=== PATIENT | female | born 1945 | race Caucasian/White ===

== ENCOUNTER 2021-12-28 19:33 | Inpatient (IN) | payer OTHER, MEDICAID ==
[~2021-12-28] VITALS: Ht 160 cm; Wt 51.7 kg
[~2021-12-28 19:33] MED LIST: ASPI-1856 PO; ATOR20TA40 PO; LISI5TAB24 PO; METO25TA PO; PANT40EC56 PO
--- NOTE | 2021-12-28 19:38 | NUR ---
PT BIBA ALS ([facility]) ER BED 8
--- NOTE | 2021-12-28 19:40 | NUR ---
Patient resting in bed, A/Ox4, chest rise and fall symmetrical, no c/o pain or s/s of distress.
[2021-12-28 19:50] VITALS: BP 152/74
--- NOTE | 2021-12-28 20:06 | NUR ---
RADIOLOGY AT BEDSIDE
--- NOTE | 2021-12-28 20:07 | NUR ---
TRISTAN REDDY AT BEDSIDE
[2021-12-28 20:44] LABS: BASOPHILS # (AUTO) 0.1 K/uL (0.00-0.22); BASOPHILS % (AUTO) 1.3 % (0.0-2.0); EOSINOPHILS # (AUTO) 0.1 K/uL (0-0.4); EOSINOPHILS % (AUTO) 2.4 % (0.0-4.0); LYMPHOCYTES # (AUTO) 0.8 K/uL (2.5-16.5); LYMPHOCYTES % (AUTO) 15.1 % (20.5-51.1); MEAN CORPUSCULAR HEMOGLOBIN 27 pg (27-31); MEAN CORPUSCULAR HGB CONC 32 g/dL (33-37); MEAN CORPUSCULAR VOLUME 85.6 fL (80-94); MONOCYTES # (AUTO) 0.5 K/uL (0.8-1.0); MONOCYTES % (AUTO) 8.7 % (1.7-9.3); NEUTROPHILS # (AUTO) 3.8 K/uL (1.8-7.7); NEUTROPHILS % (AUTO) 72.5 % (42.2-75.2); PLATELET COUNT (AUTO) 200 K/uL (140-450); RED BLOOD CELL COUNT(AUTO) 2.05 MIL/uL (4.20-5.40); RED CELL DISTRIBUTION WIDTH 17.2 % (11.6-13.7); WHITE BLOOD COUNT (AUTO) 5.2 K/uL (4.8-10.8)
[2021-12-28 20:47] LABS: HEMATOCRIT 17.5 % (36-48); HEMOGLOBIN 5.6 g/dL (12.0-16.0)
[2021-12-28 21:06] LABS: LIPASE 339 U/L (73-393)
[2021-12-28 21:11] LABS: ALBUMIN 3.6 g/dL (3.4-5.0); ANION GAP 14.9 (8-16); ASPARTATE AMINOTRANSFERASE 18 U/L (15-37); CARBON DIOXIDE 22.1 mmol/L (21-32); CHLORIDE 113 mmol/L (98-107); CREATININE 1.8 mg/dL (0.6-1.3); GLUCOSE 113 mg/dL (74-106); SODIUM SERUM 144 mmol/L (136-145); TOTAL BILIRUBIN 0.4 mg/dL (0.0-1.0); UREA NITROGEN, BLOOD 44 mg/dL (7-18)
[2021-12-28] MEDS ORDERED: SODIUM POLYSTYRENE 15 GM/60 ML UDBTL PO ONE (21:20)
[2021-12-28] MEDS ORDERED: INSULIN REGULAR, HUMAN 100 UNIT/ML VIAL SUBQ ONE (21:20)
[2021-12-28] MEDS ORDERED: DEXTROSE 50% 50 ML SYR IVP ONE (21:20)
[2021-12-28 21:37] LABS: APPEARANCE,URINE CLEAR (CLEAR); BILIRUBIN,URINE NEGATIVE (NEGATIVE); BLOOD, URINE NEGATIVE (NEGATIVE); COLOR,URINE YELLOW (YELLOW); LEUKOCYTE ESTERASE ,URINE NEGATIVE (NEGATIVE); NITRITE, URINE NEGATIVE (NEGATIVE); UGLUCOSE NEGATIVE (NEGATIVE)
--- NOTE | 2021-12-28 22:25 | NUR ---
Patient resting in bed, A/Ox4, chest rise and fall symmetrical, no c/o pain or s/s of distress.
[2021-12-28 22:37] LABS: PROTHROMBIN TIME 10.4 secs (10.8-13.4)
[2021-12-28 22:42] LABS: ANION GAP 16.9 (8-16); CARBON DIOXIDE 19.9 mmol/L (21-32); CHLORIDE 113 mmol/L (98-107); CREATININE 1.8 mg/dL (0.6-1.3); GLUCOSE 114 mg/dL (74-106); POTASSIUM 5.8 mmol/L (3.5-5.1); SODIUM SERUM 144 mmol/L (136-145); UREA NITROGEN, BLOOD 45 mg/dL (7-18)
[2021-12-28] MEDS ORDERED: guaiFENesin DM 200/20 MG-10 ML 10 ML UDC PO PRN (23:10)
[2021-12-28] MEDS ORDERED: ZOLPIDEM 5 MG TAB PO PRN (23:10)
[2021-12-28] MEDS ORDERED: POTASSIUM CHLORIDE 10 MEQ TABER PO PRN (23:10)
[2021-12-28] MEDS ORDERED: ACETAMINOPHEN 325 MG TAB PO PRN (23:10)
[2021-12-28] MEDS ORDERED: DOCUSATE SODIUM 100 MG GELCAP PO PRN (23:10)
[2021-12-28] MEDS: NACL 0.9% 1,000 ML IV SCH (23:10)
[2021-12-28] MEDS ORDERED: ONDANSETRON 4 MG/2 ML VIAL IM/IVP PRN (23:10)
[2021-12-28] MEDS ORDERED: CALCIUM GLUCONATE 10% 1,000 MG in NACL 0.9% 50 ML IV SCH (23:15)
--- NOTE | 2021-12-28 23:15 | NUR ---
Blood Transufion started at 80 mL/hr in 20 G RAC. Patient resting in bed, A/Ox4, chest rise and fall symmetrical, no c/o pain or s/s of distress.
--- NOTE | 2021-12-28 23:30 | NUR ---
Patient resting in bed, A/Ox4, chest rise and fall symmetrical, no c/o pain or s/s of distress, no raction to blood transfusion, rate increased to 110 mL/hr, RBC infusing via 20G RAC.
--- NOTE | 2021-12-28 23:50 | NUR ---
Patient will be admitted to care of Chandler RN. Admited to Telemetry. Will go to room 110B. Belongings list completed. Bedside report given to Chandler RN, Chandler RN verbalized understanding of report, No further questions. Patient was safely transferred to bed, RBC infusing at 110mL/hr via 20G RAC IV. Chandler RN stated she "is taking over care and continuing infusion of RBC." Patient resting in bed, A/Ox4, chest rise and fall symmetrical, no c/o pain or s/s of distress.
[2021-12-28 23:55] VITALS: BP 146/77
[2021-12-29 00:03] LABS: CHOL/HDL RATIO 2.3 (1-4.5); FREE T4 (FREE THYROXINE) 0.77 ng/dL (0.76-1.46); MAGNESIUM 2.4 mg/dL (1.8-2.4); PHOSPHORUS 4.1 mg/dL (2.5-4.9); THYROID STIMULATING HORMONE 0.94 uIU/mL (0.34-3.74)
--- NOTE | 2021-12-29 00:19 | NUR ---
GET THE REPORT FROM ER NURSE ALDO, PATIENT IS LYING ON BED, PATIENT IS ALERT ORIENTED X4, NO ANY COMPLAIN OF PAIN OR SHORTNESS OF BREATH AT THIS TIME, PATIENT IS RECEIVING OXYGEN 2 LITER VIA NASAL CANNULA,PATIENT IS RECEIVING BLOOD TRANSFUSION , NO ANY REACTION NOTED AT THIS TIME,VITAL SIGN IS WITHIN THE NORMAL RANGE, CALL LIGHT IS WITHIN THE REACH, WILL CONTINUE TO MONITOR PATIENT.
--- NOTE | 2021-12-29 02:56 | NUR ---
PATIENT BLOOD TRANSFUSION FINISHED AT THIS TIME, NO ANY REACTION NOTED AT THIS TIME, VITAL SIGN IS WITHIN THE NORMAL RANGE, WILL CONTINUE TO MONITOR PATIENT.
--- NOTE | 2021-12-29 03:20 | NUR ---
2 UNIT OF PACKED RED BLOOD CELL STARTED,NO ANY REACTION OR PAIN NOTED AT THIS TIME, VITAL SIGN IS WITHIN THE NORMAL RANGE, CALL LIGHT IS WITHIN THE NORMAL RANGE, WILL CONTINUE TO MONITOR PATIENT.
[2021-12-29 04:00] VITALS: BP 155/74
--- NOTE | 2021-12-29 04:15 | NUR ---
PATIENT IS LYING ON BED, VITAL SIGN IS WITHIN THE NORMAL RANGE,NO ANY COMPLAIN OF PAIN OR SHORTNESS OF BREATH AT THIS TIME, BLOOD TRANSFUSION PATIENT TOLERATING WELL, CALL LIGHT IS WITHIN THE REACH, WILL CONTINUE TO MONITOR PATIENT.
--- NOTE | 2021-12-29 05:50 | NUR ---
PATIENT IS NOT COOPERATING,AND SAYING BURKS THAT U GUYS ARE TRYING TO KILL ME NOT DOING ANYTHING, AND STARTING CRYING AND SAY SHE WANTS TO GO HER [place] HOME WITH 2 SON AND 1 DAUGHTER, SHE GETS ANGRY AGAIN AND STARTED TO WALK , PATIENT REFUSED IV FLUID , WILL CONTINUE TO MONITOR PATIENT.
--- NOTE | 2021-12-29 06:15 | NUR ---
PATIENT BLOOD TRANSFUSION IS FINISHED , TOLERATED WELL, NO ANY REACTION NOTED, POST VITAL SIGN IS WITHIN THE NORMAL RANGE, CALL LIGHT IS WITHIN THE REACH, WILL CONTINUE TO MONITOR PATIENT.
--- NOTE | 2021-12-29 07:27 | NUR ---
GAVE THE REPORT TO MORNING NURSE EMILY FOR CONTINUOS OF CARE, PATIENT IS STABLE.
--- NOTE | 2021-12-29 07:30 | NUR ---
RECEIVED REPORT FROM PM NURSE. PATIENT IS RESTING IN BED, AAO x4, RESPIRATIONS EVEN AND UL ON 2LNC. DENIES PAIN/DISCOMFORT. IV SITE TO RAC WNL. PT REFUSING IVF. EXPLAINED TO PATIENT IMPORTANCE OF IVF PER MD ORDER, PT REFUSING AND STATES "I DONT WANT TO HAVE CORDS EVERYWHERE, I DONT WANT IT." SIDE RAILS x2, BED IN LOWEST POSITION, CALL LIGHT IN REACH. WILL CONT TO MONITOR.
[2021-12-29 08:00] VITALS: BP 163/71
[2021-12-29 08:26] LABS: ANION GAP 15.8 (8-16); CHLORIDE 114 mmol/L (98-107); CREATININE 1.5 mg/dL (0.6-1.3); GLUCOSE 80 mg/dL (74-106); POTASSIUM 4.8 mmol/L (3.5-5.1); SODIUM SERUM 145 mmol/L (136-145); UREA NITROGEN, BLOOD 35 mg/dL (7-18)
[2021-12-29 08:46] LABS: BASOPHILS # (AUTO) 0.1 K/uL (0.00-0.22); BASOPHILS % (AUTO) 1.3 % (0.0-2.0); EOSINOPHILS # (AUTO) 0.1 K/uL (0-0.4); EOSINOPHILS % (AUTO) 2.5 % (0.0-4.0); HEMATOCRIT 25.6 % (36-48); HEMOGLOBIN 8.4 g/dL (12.0-16.0); LYMPHOCYTES # (AUTO) 1.1 K/uL (2.5-16.5); LYMPHOCYTES % (AUTO) 18.4 % (20.5-51.1); MEAN CORPUSCULAR HEMOGLOBIN 28 pg (27-31); MEAN CORPUSCULAR HGB CONC 33 g/dL (33-37); MEAN CORPUSCULAR VOLUME 85.6 fL (80-94); MONOCYTES # (AUTO) 0.6 K/uL (0.8-1.0); MONOCYTES % (AUTO) 10.2 % (1.7-9.3); NEUTROPHILS # (AUTO) 3.9 K/uL (1.8-7.7); NEUTROPHILS % (AUTO) 67.6 % (42.2-75.2); PLATELET COUNT (AUTO) 179 K/uL (140-450); RED BLOOD CELL COUNT(AUTO) 2.99 MIL/uL (4.20-5.40); RED CELL DISTRIBUTION WIDTH 15.9 % (11.6-13.7); WHITE BLOOD COUNT (AUTO) 5.8 K/uL (4.8-10.8)
[2021-12-29] MEDS: ECOTRIN 81 MG TABEC PO SCH (09:25)
[2021-12-29] MEDS: PANTOPRAZOLE 40 MG TABEC PO SCH (09:25)
[2021-12-29] MEDS: lisinopriL 5 MG TAB PO SCH (09:26)
[2021-12-29] MEDS: METOPROLOL 25 MG TAB PO SCH ×2 (09:27→20:39)
--- NOTE | 2021-12-29 11:50 | NUR ---
PATIENT HAS BEEN SCREENED AND CATEGORIZED LOW NUTRITION RISK. PATIENT WILL BE SEEN WITHIN 7 DAYS OF ADMISSION. 01/04/[address]
[2021-12-29] MEDS ORDERED: hydrALAZINE 20 MG/ML VIAL IVP PRN (11:55)
[2021-12-29 12:00] VITALS: BP 114/66
--- NOTE | 2021-12-29 12:31 | NUR ---
PATIENT RESTING IN BED, EATING LUNCH. RESPIRATIONS EVEN AND UL ON 2LNC. DENIES PAIN/DISCOMFORT. PT STILL REFUSING IVF. ALL NEEDS MET AT THIS TIME. SAFETY MEASURES IN PLACE.
--- NOTE | 2021-12-29 13:11 | NUR ---
TELE STRIP THIS AM SHOWING SR W/ST DEPRESSION. NOW SHOWING SR W/ST DEPRESSION AND 1 AV, DR PEARL RENEWABLE ENERGY BROKER AWARE. NO NEW ORDERS.
[2021-12-29 16:00] VITALS: BP 155/62
[2021-12-29] MEDS: ATORVASTATIN 20 MG TAB PO SCH (17:00)
[2021-12-29] MEDS: NITROGLYCERIN 0.4 MG TAB SL PRN ×4 (18:48→22:21)
[2021-12-29] MEDS: MORPHINE SULFATE 2 MG/ML SYR IVP PRN (18:58)
--- NOTE | 2021-12-29 19:10 | NUR ---
1846 PATIENT C/O 8/10 CHEST PAIN, V/S: BP 166/58, HR 72, 02 99% 2LNC, T 97.8, RR20. ADMINISTERED PRN NITRO x1. 1851 PATIENT STATES 8/10 CHEST PAIN, NITRO NOT EFFECTIVE. V/S: BP 110/52, HR 75, 02 98% 2LNC, T 97.9, RR20. ADMINISTERED SECOND DOSE OF PRN NITRO. MEDICATED WITH PRN MORPHINE. 1856 PATIENT STATES CHEST PAIN IS DECREASING, /10 NOW. V/S: BP 95/56, HR 79, 02 98% 2LNC, T 97.9, RR20. DID NOT ADMINISTER 3RD DOSE OF NITRO D/T LOW BP. DR. MCCAULEY PAGED, AWAITING RESPONSE. 1909 BP NOW 110/55, HR 79, 02 98% 2LNC. PT STATES PAIN IS DECREASING. PT REFUSED IVF THROUGHOUT SHIFT. CURRENTLY RESTING IN BED, RESPIRATIONS EVEN AND UL ON 2LNC. SL TO RAC, IV SITE WNL. AWAITING RESPONSE FROM DR. MCCAULEY. ENDORSED TO PM NURSE FOR CONTINUITY OF CARE, REPORT GIVEN AT BEDSIDE.
--- NOTE | 2021-12-29 19:20 | NUR ---
RECEIVED REPORT FROM AM NURSE EMILY RN FOR CONTINUITY OF CARE. PT IS STABLE IN BED REFUSES IV FLUIDS. A&OX4 DENIES PAIN AT THIS TIME.ON O2 2L/NC WITH NO SIGNS OF ACUTE DISTRESS. RR EVEN AND UNLABORED WITH EQUAL CHEST RISE. GI INTACT. PT'S SKIN IS INTACT. PT AMBULATES AND IS CONTINENT. ALL SAFETY MEASURES IN PLACE. BED IN LOW AND LOCKED POSITION. CALL LIGHT WITHIN REACH.
[2021-12-29 20:00] VITALS: BP 132/72
[2021-12-29] MEDS: NACL 0.9% 1,000 ML IV SCH (20:36)
--- NOTE | 2021-12-29 20:50 | NUR ---
C/O 08/10 R SIDE PAIN AND PAIN UNDER BREAST BONE. MEDICATED WITH NORCO 7.5/325MG 1 TAB PO. 2106 STILL HAVING PAIN ON R SIDE NOW ON LEFT SIDE ALSO. NITROSTAT 1 TAB GIVEN SUBLINGUALLY. BY 2114 PAIN WAS STARTING TO EASE UP.
[2021-12-29] MEDS: HYDROcodone/APAP 7.5/325 MG 1 TAB PO PRN (20:56)
--- NOTE | 2021-12-29 22:17 | NUR ---
PT C/O PAIN UNDER L BREAST BONE AND CHEST PAIN. 1 NITRO GIVEN UNDER THE TONGUE AT 2220. BY 2239 PAIN WAS ALMOST GONE. RAINEY LEVEL NOW A 2. WILL CONTINUE TO MONITOR.
[2021-12-30] VITALS (7 sets, daily range): BP systolic 130–151; BP diastolic 59–67
[2021-12-30 06:52] LABS: ANION GAP 13.6 (8-16); CARBON DIOXIDE 23.7 mmol/L (21-32); CHLORIDE 112 mmol/L (98-107); CREATININE 1.4 mg/dL (0.6-1.3); GLUCOSE 94 mg/dL (74-106); POTASSIUM 4.3 mmol/L (3.5-5.1); SODIUM SERUM 145 mmol/L (136-145); UREA NITROGEN, BLOOD 33 mg/dL (7-18)
[2021-12-30 07:10] LABS: BASOPHILS # (AUTO) 0.1 K/uL (0.00-0.22); BASOPHILS % (AUTO) 1.2 % (0.0-2.0); EOSINOPHILS # (AUTO) 0.1 K/uL (0-0.4); EOSINOPHILS % (AUTO) 2.2 % (0.0-4.0); HEMOGLOBIN 8.8 g/dL (12.0-16.0); LYMPHOCYTES % (AUTO) 18.4 % (20.5-51.1); MEAN CORPUSCULAR HEMOGLOBIN 28 pg (27-31); MEAN CORPUSCULAR HGB CONC 33 g/dL (33-37); MEAN CORPUSCULAR VOLUME 85.8 fL (80-94); MONOCYTES # (AUTO) 0.6 K/uL (0.8-1.0); MONOCYTES % (AUTO) 11.2 % (1.7-9.3); NEUTROPHILS # (AUTO) 3.5 K/uL (1.8-7.7); PLATELET COUNT (AUTO) 185 K/uL (140-450); RED BLOOD CELL COUNT(AUTO) 3.15 MIL/uL (4.20-5.40); RED CELL DISTRIBUTION WIDTH 16.4 % (11.6-13.7); WHITE BLOOD COUNT (AUTO) 5.2 K/uL (4.8-10.8)
--- NOTE | 2021-12-30 07:20 | NUR ---
ENDORSED TO AM NURSE EMILY RN FOR CONTINUITY OF CARE. PT IS STABLE. ALL NEEDS MET THROUGHOUT THE SHIFT.
--- NOTE | 2021-12-30 07:30 | NUR ---
RECEIVED REPORT FROM PM NURSE. PATIENT RESTING IN BED, AAO x4, RESPIRATIONS EVEN AND UL ON 2LNC. DENIES PAIN/DISCOMFORT. CALL LIGHT IN EASY REACH, BED IN LOW, SIDE RAILS x2. WILL CONT TO MONITOR.
[2021-12-30 08:07] LABS: T4 (THYROXINE) 5.4 ug/dL (4.5-12.0)
[2021-12-30] MEDS: PANTOPRAZOLE 40 MG TABEC PO SCH (09:21)
[2021-12-30] MEDS: ECOTRIN 81 MG TABEC PO SCH (09:21)
[2021-12-30] MEDS: METOPROLOL 25 MG TAB PO SCH ×2 (09:23→21:23)
[2021-12-30] MEDS: lisinopriL 5 MG TAB PO SCH (09:28)
--- NOTE | 2021-12-30 09:35 | NUR ---
RECEIVED CALL FROM LAB, PT IS POSITIVE FOR MRSA IN NARES. DR. MELLO NOTIFIED AND AWARE. MRSA PROTOCOL TO BE FOLLOWED PER .
[2021-12-30] MEDS: MUPIROCIN CA NASAL 2% 1GM TUBE NS SCH (11:27)
[2021-12-30] MEDS: CHLORHEXADINE GLUC 2% CLOTH TP SCH (11:28)
--- NOTE | 2021-12-30 12:31 | NUR ---
PT FOUND WITH IV DISLODGED, CATH INTACT, NO BLEEDING NOTED. INSERTED NEW IV SITE 22G TO , PT TOLERATED WELL.
[2021-12-30] MEDS: HYDROcodone/APAP 7.5/325 MG 1 TAB PO PRN (12:37)
[2021-12-30] MEDS: NITROGLYCERIN 0.4 MG TAB SL PRN ×2 (17:53→18:00)
[2021-12-30] MEDS: ATORVASTATIN 20 MG TAB PO SCH (17:53)
[2021-12-30] MEDS: MORPHINE SULFATE 2 MG/ML SYR IVP PRN (18:14)
--- NOTE | 2021-12-30 19:10 | NUR ---
PATIENT RESTING IN BED, RESPIRATIONS EVEN AND UL ON 2LNC. AAO x4. DENIES PAIN/DISCOMFORT AT THIS TIME. ALL NEEDS MET. BED IN LOW, SIDE RAILS x2, CALL LIGHT IN EASY REACH. REPORT GIVEN TO PM NURSE FOR CONTINUITY OF CARE.
--- NOTE | 2021-12-30 19:20 | NUR ---
RECEIVED REPORT FROM AM NURSE EMILY RN FOR CONTINUITY OF CARE. PT IS STABLE IN BED. A&OX4 WITH PERIODS OF CONFUSION DURING THE NIGHT. PT C/O 12/10 NAUSEA SPIT UP SOME CLEAR FLUID WITH BILE. ZOFRAN 4MG/2ML GIVEN IVP. WITH NO FURTHER EMESIS. WILL CONTINUE TO MONITOR.
[2021-12-30] MEDS: NACL 0.9% 1,000 ML IV SCH (19:38)
[2021-12-31 04:00] VITALS: BP 139/65
--- NOTE | 2021-12-31 07:10 | NUR ---
RECEIVED REPORT FROM FLOOR FINISHER NURSE FOR CONTINUITY OF CARE. PATIENT ASLEEP NO DISTRESS NOTED. RESPIRATION EVEN AND NOT LABORED NO SHORTNESS OF BREATH. RESIDENT ON 2 L/MIN VIA NASAL CANULA OF O2 NO DISTRESS NOTED. IV SITE ON RIGHT HAND JHONATAN 22 SALINE LOCK ALL SAFETY MEASURE IN PLACE.
[2021-12-31 08:00] VITALS: BP 144/66
[2021-12-31] MEDS: PANTOPRAZOLE 40 MG TABEC PO SCH (09:02)
[2021-12-31] MEDS: ECOTRIN 81 MG TABEC PO SCH (09:02)
[2021-12-31] MEDS: METOPROLOL 25 MG TAB PO SCH ×2 (09:02→20:28)
--- NOTE | 2021-12-31 09:10 | NUR ---
PATIENT ALERT WITH CONFUSION. FINISH EATING BREAKFAST TOLERATED WELL. PATIENT GIVEN ALL DUE MEDICATION TOLERATED WELL. ALL SAFETY MEASURE IN PLACE.
[2021-12-31] MEDS: MUPIROCIN CA NASAL 2% 1GM TUBE NS SCH (11:04)
[2021-12-31] MEDS: CHLORHEXADINE GLUC 2% CLOTH TP SCH (11:04)
--- NOTE | 2021-12-31 11:29 | NUR ---
PATIENT ASLEEP NO DISTRESS NOTED. ALL SAFETY MEASURE IN PLACE.
[2021-12-31 12:00] VITALS: BP 145/47
--- NOTE | 2021-12-31 13:30 | NUR ---
REMOVED TELE BOX AND PATIENT GOES BACK TO BED RESTING.
--- NOTE | 2021-12-31 13:31 | NUR ---
SEEN AND EVALUATED BY DR. PEARL ORDER TO DOWN GRADE PATIENT ALSO REFUSED TO CONNECT TO IV HYDRATION PATIENT EATING AND DRINKING SUFFICIENT AMOUNT OF FLUID. WILL TRY TO ENCOURAGE AGAIN LATER.
--- NOTE | 2021-12-31 13:42 | NUR ---
PATIENT VERY MAD SCREAMING AND YELLING THAT I REMOVED HER TELE BOX JUST BECAUSE SHE REFUSED T THE IV HYDRATION. I TRIED TO EXPLAIN THAT'S THE DOCTOR ORDER TO DOWN GRADE BECAUSE SHE IS GETTING BETTER BUT SHE STILL CONTINUE ON SCREAMING AND YELLING TRYING TO HIT ME.
--- NOTE | 2021-12-31 15:55 | NUR ---
Received report from alcides Morgan from ER for continuity of care.
[2021-12-31 16:00] VITALS: BP 145/47
--- NOTE | 2021-12-31 17:14 | NUR ---
DC PLANNING: PATIENT HAS AN ORDER TO RETURN TO [facility]. PER ARIN ADMIN AT PATIENT CAN GO TO ROOM 215A # TO GIVE REPORT [phone]. CALLED [facility] FAXED THE TRANSPORT REQUEST. CALLED SEVERAL TIMES SPOKE WITH [employer] TO FAX THE REQUEST WHICH IT WAS SENT ALREADY BUT PROVIDE DIFFERENT NUMBER. CALLED [phone] STATED THEY CAN'T PROVIDE TRANSPORT AT [facility]. CALLED [facility] STATED HE HAS NO GROUP LEADER AT THIS TIME. CM TO FOLLOW Addendum: 01/01/22 at 1120 by My Cantu RN DC PLANNING: ARRANGED TRANSPORT WITH [facility] GOING TO [facility] ROOM # 215A # TO GIVE REPORT [phone] INTEGRATION AIDE TIME 2PM. NOTIFIED COURTNEY ZAMORA. CM TO FOLLOW
[2021-12-31] MEDS: ATORVASTATIN 20 MG TAB PO SCH (17:42)
--- NOTE | 2021-12-31 17:45 | NUR ---
PATIENT SITTING ON CHAIR BUT REFUSED TO BE HOOK JOSE LUIS ON IV HYDRATION. GIVEN DUE MEDICATION TOLERATED WELL. GIVEN EXTRA BLANKET FOR COMPLAIN OF COLDNESS REFUSED TO GO BACK TO BED.
[2021-12-31] MEDS: NACL 0.9% 1,000 ML IV SCH (17:52)
--- NOTE | 2021-12-31 18:59 | NUR ---
PATIENT SITTING ON CHAIR ON HER DOORWAY CALM BUT REFUSED TO BE HOOK ON IV HYDRATION.
--- NOTE | 2021-12-31 19:42 | NUR ---
GAVE REPORT TO VICE PRESIDENT OF DEVELOPMENT NURSE DEEPTHI FOR CONTINUITY OF CARE.
--- NOTE | 2021-12-31 19:43 | NUR ---
RECEIVED REPORT FROM DAY SHIFT NURSE COURTNEY. PT AWAKE, SITTING IN CHAIR BY PT ROOM DOOR. RESPIRATIONS EVEN AND UNLABORED ON RA SATTING AT 98%. NO DISTRESS NOTED. IV SITE ON RH G22. PT REFUSED IV FLUIDS. SAFETY PRECAUTIONS IN PLACE.
[2021-12-31 20:00] VITALS: BP 157/78
--- NOTE | 2021-12-31 20:00 | NUR ---
Patient's Plan of Care was discussed and reviewed with NOAH LACEY.
--- NOTE | 2021-12-31 20:28 | NUR ---
PT CRYING. PT STATED, SHE WANTED TO LEAVE. SPOKE TO THE PT AND EXPLAINED WHY HER DISCHARGE DIDN'T HAPPEN TODAY. PT VERBALIZED UNDERSTANDING AND BECAME CALM. ADMINISTERED SCHEDULED MED. PT WENT BACK TO BED. CALL LIGHT WITHIN REACH. SAFETY PRECAUTIONS IN PLACE.
--- NOTE | 2022-01-01 00:27 | NUR ---
PT SLEEPING. RESPIRATIONS EVEN AND UNLABORED WITH EQUAL CHEST RISE AND FALL. NO DISTRESS NOTED. SAFETY PRECAUTIONS IN PLACE.
[2022-01-01 04:00] VITALS: BP 124/77
--- NOTE | 2022-01-01 04:00 | NUR ---
V/S TAKEN, STABLE. PT SLEEPING. NO DISTRESS NOTED. SAFETY PRECAUTIONS IN PLACE.
--- NOTE | 2022-01-01 07:14 | NUR ---
ENDORSED PT TO DAY SHIFT NURSE ADZE. ALL NEEDS MET THROUGHOUT SHIFT. PT IS STABLE. Addendum: 01/01/22 at 0721 by Meryl Gordon LVN ERROR
--- NOTE | 2022-01-01 07:14 | NUR ---
ENDORSED PT TO DAY SHIFT NURSE COURTNEY. ALL NEEDS MET THROUGHOUT SHIFT. PT IS STABLE.
--- NOTE | 2022-01-01 07:15 | NUR ---
RECEIVED PT FROM ENERGY CONSERVATION REPRESENTATIVE NURSE. PT IN BED WITH EYES CLOSED. EVEN CHEST RISE/FALL. RESPIRATIONS EVEN AND UNLABORED. ON ROOM AIR. NO DISTRESS NOTED. CALL LIGHT WITHIN REACH. ALL SAFETY PRECAUTIONS IN PLACE.
[2022-01-01 07:57] LABS: BASOPHILS # (AUTO) 0.1 K/uL (0.00-0.22); BASOPHILS % (AUTO) 1.6 % (0.0-2.0); EOSINOPHILS # (AUTO) 0.2 K/uL (0-0.4); EOSINOPHILS % (AUTO) 3.8 % (0.0-4.0); HEMATOCRIT 25.3 % (36-48); HEMOGLOBIN 8.2 g/dL (12.0-16.0); LYMPHOCYTES # (AUTO) 0.9 K/uL (2.5-16.5); LYMPHOCYTES % (AUTO) 17.3 % (20.5-51.1); MEAN CORPUSCULAR HEMOGLOBIN 28 pg (27-31); MEAN CORPUSCULAR HGB CONC 33 g/dL (33-37); MEAN CORPUSCULAR VOLUME 85.6 fL (80-94); MONOCYTES # (AUTO) 0.5 K/uL (0.8-1.0); MONOCYTES % (AUTO) 11.1 % (1.7-9.3); NEUTROPHILS # (AUTO) 3.3 K/uL (1.8-7.7); NEUTROPHILS % (AUTO) 66.2 % (42.2-75.2); PLATELET COUNT (AUTO) 166 K/uL (140-450); RED BLOOD CELL COUNT(AUTO) 2.95 MIL/uL (4.20-5.40); RED CELL DISTRIBUTION WIDTH 16.7 % (11.6-13.7)
[2022-01-01 08:00] VITALS: BP 148/55
[2022-01-01 08:28] LABS: ANION GAP 13.4 (8-16); CHLORIDE 112 mmol/L (98-107); CREATININE 1.4 mg/dL (0.6-1.3); GLUCOSE 90 mg/dL (74-106); POTASSIUM 4.4 mmol/L (3.5-5.1); SODIUM SERUM 144 mmol/L (136-145); UREA NITROGEN, BLOOD 34 mg/dL (7-18)
--- NOTE | 2022-01-01 08:30 | NUR ---
DR. MELLO DOING HER ROUNDS INFORM THAT PATIENT IS REFUSING HER IV HYDRATION AND ALSO JUST WAITING FOR TRANSPORTATION TO TRANSFER TO [facility].
--- NOTE | 2022-01-01 08:35 | NUR ---
DR. MELLO ORDER TO DISCONTINUE IV HYDRATION. PATIENT ASLEEP NO DISTRESS OR ANY ABNORMAL BEHAVIOR.
[2022-01-01] MEDS: METOPROLOL 25 MG TAB PO SCH (09:38)
[2022-01-01] MEDS: PANTOPRAZOLE 40 MG TABEC PO SCH (09:38)
--- NOTE | 2022-01-01 09:40 | NUR ---
SCHEDULED MEDS TAKEN. PT TOLERATED WELL.
[2022-01-01] MEDS: CHLORHEXADINE GLUC 2% CLOTH TP SCH (11:00)
[2022-01-01] MEDS: MUPIROCIN CA NASAL 2% 1GM TUBE NS SCH (11:00)
--- NOTE | 2022-01-01 12:20 | NUR ---
PT IN BED, RESTING WITH EYES CLOSED. AROUSABLE TO VOICE. PT DENIES ANY PAIN. CALL LIGHT WITHIN REACH.
--- NOTE | 2022-01-01 14:24 | NUR ---
IV TAKEN OFF PT AWAITING TRANSPORT.
[2022-01-01 16:00] VITALS: BP 152/68
[2022-01-01] MEDS: ATORVASTATIN 20 MG TAB PO SCH (16:56)
--- NOTE | 2022-01-01 18:30 | NUR ---
PT TRANSPORT ARRIVE. PT TO GO TO FACILITY [facility] IN [place]. PT BELONGINGS GATHERED AND TAKEN. NAME BAND REMOVED. DISCHARGE PACKET GIVEN TO TRANSPORT STAFF. PT TAKEN VIA GURNEY ON ROUTE TO [facility]. PT IN STABLE CONDITION.
== END 2022-01-01 18:07 | DRG 682 ==
LOC: MED 19:33 → MTU 23:22
PROVIDERS: ADMIT Family Medicine; ATTEND Family Medicine
PROC: 30233N1 Transfusion of Nonautologous Red Blood Cells into Peripheral Vein, Percutaneous Approach (ICD-10-PCS; principal; 2021-12-28)
DX: N17.0 Acute kidney failure with tubular necrosis (principal); G93.41 Metabolic encephalopathy; E86.0 Dehydration; R07.89 Other chest pain; D64.9 Anemia, unspecified; E87.5 Hyperkalemia; I11.9 Hypertensive heart disease without heart failure; I44.7 Left bundle-branch block, unspecified; Z79.899 Other long term (current) drug therapy; Z79.82 Long term (current) use of aspirin
CPT/HCPCS: 36415; 36430; 71045; 80048; 80053; 81003; 82150; 83036; 83690; 83735; 83880; 84100; 84436; 84439; 84443; 84479; 84484; 85025; 85610; 85730; 86886; 86900; 86901; 86920; 87081; 93005; 96374; 96375; 99285; J1815; J2270; J2405; P9016; Q0092

== ENCOUNTER 2022-02-04 22:49 | Inpatient (IN) | payer OTHER, MEDICAID ==
[~2022-02-04] VITALS: Ht 160 cm; Wt 57.6 kg
[~2022-02-04 22:49] MED LIST changes: -ASPI-1856 PO
[2022-02-04 22:50] VITALS: BP 136/62
--- NOTE | 2022-02-04 22:55 | NUR ---
PT JARED ALS. TAKEN TO BED 4
--- NOTE | 2022-02-04 23:00 | NUR ---
pt came with sob and chest pain, pt is alertand oiented x 4. vital sign has been stable. ambulatory, no skin issue.
[2022-02-04 23:42] LABS: BASOPHILS # (AUTO) 0.1 K/uL (0.00-0.22); BASOPHILS % (AUTO) 1.3 % (0.0-2.0); EOSINOPHILS # (AUTO) 0.2 K/uL (0-0.4); EOSINOPHILS % (AUTO) 2.6 % (0.0-4.0); LYMPHOCYTES # (AUTO) 0.9 K/uL (2.5-16.5); LYMPHOCYTES % (AUTO) 15.3 % (20.5-51.1); MEAN CORPUSCULAR HEMOGLOBIN 27 pg (27-31); MEAN CORPUSCULAR HGB CONC 31 g/dL (33-37); MEAN CORPUSCULAR VOLUME 85.2 fL (80-94); MONOCYTES # (AUTO) 0.7 K/uL (0.8-1.0); MONOCYTES % (AUTO) 10.8 % (1.7-9.3); NEUTROPHILS # (AUTO) 4.3 K/uL (1.8-7.7); PLATELET COUNT (AUTO) 174 K/uL (140-450); RED BLOOD CELL COUNT(AUTO) 2.31 MIL/uL (4.20-5.40); RED CELL DISTRIBUTION WIDTH 18.6 % (11.6-13.7); WHITE BLOOD COUNT (AUTO) 6.1 K/uL (4.8-10.8)
[2022-02-04 23:47] LABS: HEMATOCRIT 19.7 % (36-48); HEMOGLOBIN 6.2 g/dL (12.0-16.0)
[2022-02-05 00:17] LABS: ALBUMIN 3.2 g/dL (3.4-5.0); ANION GAP 14.6 (8-16); ASPARTATE AMINOTRANSFERASE 21 U/L (15-37); CARBON DIOXIDE 23.3 mmol/L (21-32); CHLORIDE 111 mmol/L (98-107); CREATININE 2.1 mg/dL (0.6-1.3); GLUCOSE 127 mg/dL (74-106); POTASSIUM 4.9 mmol/L (3.5-5.1); SODIUM SERUM 144 mmol/L (136-145); TOTAL BILIRUBIN 0.4 mg/dL (0.0-1.0); UREA NITROGEN, BLOOD 45 mg/dL (7-18)
[2022-02-05] MEDS ORDERED: MORPHINE SULFATE 2 MG/ML SYR IVP PRN ×2 (01:40→07:45)
[2022-02-05] MEDS ORDERED: ONDANSETRON 4 MG/2 ML VIAL IVP PRN ×2 (01:40→07:45)
--- NOTE | 2022-02-05 03:10 | NUR ---
pt is getting blood transfusion, monitor patient at this moement for 15 minutes
[2022-02-05] MEDS ORDERED: ACET-2619 PO ×2 (04:04→04:06)
[2022-02-05] MEDS ORDERED: APIX2.5 PO (04:04)
[2022-02-05] MEDS ORDERED: NITR12SP3 SL (04:04)
[2022-02-05] MEDS ORDERED: METO25TA PO (04:04)
[2022-02-05] MEDS ORDERED: LISI5TAB24 PO (04:04)
[2022-02-05] MEDS ORDERED: HYDR-1098 PO (04:04)
[2022-02-05] MEDS ORDERED: CLON0.1T16 PO (04:04)
[2022-02-05] MEDS ORDERED: LACT10SO86 PO (04:04)
[2022-02-05] MEDS ORDERED: MULT-2611 PO (04:04)
[2022-02-05] MEDS ORDERED: SENN8.8S21 PO (04:04)
[2022-02-05] MEDS ORDERED: ONDA-188 PO (04:04)
[2022-02-05] MEDS ORDERED: ALBU3SOL83 IH (04:04)
[2022-02-05] MEDS ORDERED: CHOL1TAB11 PO (04:04)
[2022-02-05] MEDS ORDERED: GABA-636 PO (04:04)
[2022-02-05] MEDS ORDERED: SENN-74 PO (04:06)
--- NOTE | 2022-02-05 07:10 | NUR ---
2nd blood has difreet experation date in labs. pt woulnd able to get second blood. they will call when its is ready
[2022-02-05] MEDS ORDERED: DOCUSATE SODIUM 100 MG GELCAP PO PRN (07:45)
[2022-02-05] MEDS ORDERED: POTASSIUM CHLORIDE 10 MEQ TABER PO PRN (07:45)
[2022-02-05] MEDS ORDERED: MAG SULF 2000 MG/WATER PREMIX 50 ML IV PRN (07:45)
[2022-02-05] MEDS ORDERED: ZOLPIDEM 10 MG TAB PO PRN (07:45)
[2022-02-05] MEDS ORDERED: ACETAMINOPHEN 325 MG TAB PO PRN (07:45)
[2022-02-05] MEDS ORDERED: LORazepam 2 MG/ML VIAL IVP PRN (07:45)
--- NOTE | 2022-02-05 08:00 | NUR ---
pt refusing tele monitor at this time
--- NOTE | 2022-02-05 08:26 | NUR ---
pt refusing tele monitoring in telemetry unit. transfer of care to paral rn at this time.
--- NOTE | 2022-02-05 08:27 | NUR ---
Patient will be admitted to care of Eliane WOODS. Admitted to Telemetry. Will go to room 120B. Belongings list completed. Report to Lawanda MADDEN.
[2022-02-05] MEDS ORDERED: SENNA 8.6 MG TAB PO SCH (09:00)
[2022-02-05] MEDS ORDERED: lisinopriL 5 MG TAB PO SCH (09:00)
[2022-02-05] MEDS: GABAPENTIN 100 MG CAP PO SCH (09:00)
[2022-02-05] MEDS: METOPROLOL 25 MG TAB PO SCH ×2 (09:00→21:10)
[2022-02-05 10:49] VITALS: BP 118/68
[2022-02-05 10:51] LABS: ANION GAP 14.3 (8-16); CARBON DIOXIDE 22.4 mmol/L (21-32); CHLORIDE 114 mmol/L (98-107); CREATININE 1.6 mg/dL (0.6-1.3); GLUCOSE 83 mg/dL (74-106); POTASSIUM 4.7 mmol/L (3.5-5.1); SODIUM SERUM 146 mmol/L (136-145); UREA NITROGEN, BLOOD 43 mg/dL (7-18)
[2022-02-05 11:29] LABS: BASOPHILS # (AUTO) 0.1 K/uL (0.00-0.22); BASOPHILS % (AUTO) 1.1 % (0.0-2.0); EOSINOPHILS # (AUTO) 0.1 K/uL (0-0.4); EOSINOPHILS % (AUTO) 2.7 % (0.0-4.0); HEMATOCRIT 23.9 % (36-48); HEMOGLOBIN 7.8 g/dL (12.0-16.0); LYMPHOCYTES # (AUTO) 0.7 K/uL (2.5-16.5); LYMPHOCYTES % (AUTO) 12.8 % (20.5-51.1); MEAN CORPUSCULAR HEMOGLOBIN 28 pg (27-31); MEAN CORPUSCULAR HGB CONC 32 g/dL (33-37); MEAN CORPUSCULAR VOLUME 85.2 fL (80-94); MONOCYTES # (AUTO) 0.5 K/uL (0.8-1.0); MONOCYTES % (AUTO) 9.2 % (1.7-9.3); NEUTROPHILS # (AUTO) 4.2 K/uL (1.8-7.7); NEUTROPHILS % (AUTO) 74.2 % (42.2-75.2); PLATELET COUNT (AUTO) 154 K/uL (140-450); RED BLOOD CELL COUNT(AUTO) 2.81 MIL/uL (4.20-5.40); RED CELL DISTRIBUTION WIDTH 16.5 % (11.6-13.7); WHITE BLOOD COUNT (AUTO) 5.6 K/uL (4.8-10.8)
[2022-02-05 14:53] LABS: THYROID STIMULATING HORMONE 1.62 uIU/mL (0.34-3.74)
[2022-02-05 16:00] VITALS: BP 145/53
--- NOTE | 2022-02-05 16:15 | NUR ---
PATIENT HAS BEEN SCREENED AND CATEGORIZED LOW NUTRITION RISK. PATIENT WILL BE SEEN WITHIN 7 DAYS OF ADMISSION. 02/12/[address]
[2022-02-05] MEDS: LACTULOSE 20 GM/30 ML UDC PO SCH ×2 (17:11→21:00)
[2022-02-05] MEDS: SENNA 8.6 MG TAB PO SCH (17:11)
--- NOTE | 2022-02-05 17:29 | NUR ---
Pt. refused US abdomen. She is non-compliant with care and refusing to take medications. MD is aware.
--- NOTE | 2022-02-05 19:30 | NUR ---
GET REPORT FROM MORNING NURSE WOJCIECH, PATIENT IS ALERT ORIENTED X2, ALL FALL PRECAUTION MEASURE ARE IN PLACE, PATIENT IS KEEP REFUSING TO EVERYTHING, CALL LIGHT IS WITHIN THE REACH, WILL CONTINUE TO MONITOR PATIENT.
[2022-02-05 20:00] VITALS: BP 148/78
[2022-02-05] MEDS: PANTOPRAZOLE 40 MG INJ VIAL IVP SCH (21:00)
[2022-02-05] MEDS: POLYETHYLENE GLYCOL 17 GM/PKT PO SCH (21:00)
--- NOTE | 2022-02-05 21:11 | NUR ---
PATIENT IS LYING ON BED, NO ANY COMPLAIN OF PAIN OR SHORTNESS OF BREATH AT THIS TIME, PATIENT REFUSED ALL MEDICATION , PATIENT TOOK ONLY METOPROLOL 12.5MG PO, VITAL SIGN IS WITHIN THE NORMAL RANGE, CALL LIGHT IS WITHIN THE REACH, WILL CONTINUE TO MONITOR PATIENT.
--- NOTE | 2022-02-06 01:38 | NUR ---
PATIENT PULLED OUT IV AND REFUSED TO PUT NEW ONE, WILL CONTINUE TO MONITOR PATIENT.
--- NOTE | 2022-02-06 04:53 | NUR ---
PATIENT REFUSED TO TAKE VITAL SIGN , PATIENT REFUSED TO TOUCH, WILL CONTINUE TO MONITOR PATIENT.
[2022-02-06 06:07] LABS: BASOPHILS # (AUTO) 0.1 K/uL (0.00-0.22); BASOPHILS % (AUTO) 1.9 % (0.0-2.0); EOSINOPHILS # (AUTO) 0.2 K/uL (0-0.4); EOSINOPHILS % (AUTO) 3.7 % (0.0-4.0); HEMATOCRIT 24.3 % (36-48); HEMOGLOBIN 7.9 g/dL (12.0-16.0); LYMPHOCYTES # (AUTO) 1.1 K/uL (2.5-16.5); LYMPHOCYTES % (AUTO) 22.3 % (20.5-51.1); MEAN CORPUSCULAR HEMOGLOBIN 28 pg (27-31); MEAN CORPUSCULAR HGB CONC 32 g/dL (33-37); MEAN CORPUSCULAR VOLUME 84.9 fL (80-94); MONOCYTES # (AUTO) 0.6 K/uL (0.8-1.0); NEUTROPHILS # (AUTO) 3.1 K/uL (1.8-7.7); NEUTROPHILS % (AUTO) 61.1 % (42.2-75.2); PLATELET COUNT (AUTO) 165 K/uL (140-450); RED BLOOD CELL COUNT(AUTO) 2.86 MIL/uL (4.20-5.40); RED CELL DISTRIBUTION WIDTH 17.3 % (11.6-13.7)
[2022-02-06 06:11] LABS: ANION GAP 13.1 (8-16); CARBON DIOXIDE 23.7 mmol/L (21-32); CHLORIDE 114 mmol/L (98-107); CREATININE 1.4 mg/dL (0.6-1.3); GLUCOSE 81 mg/dL (74-106); POTASSIUM 4.8 mmol/L (3.5-5.1); SODIUM SERUM 146 mmol/L (136-145); UREA NITROGEN, BLOOD 35 mg/dL (7-18)
--- NOTE | 2022-02-06 06:43 | NUR ---
PATIENT BLOOD SUGAR IS 146, NO INSULIN COVERAGE IS NEEDED AT THIS TIME, WILL CONTINUE TO MONITOR PATIENT.
--- NOTE | 2022-02-06 06:44 | NUR ---
WRONG PATIENT DOCUMENTATION.
--- NOTE | 2022-02-06 07:07 | NUR ---
GAVE THE REPORT TO MORNING NURSE WOJCIECH FOR CONTINUOS OF CARE, PATIENT IS STABLE.
[2022-02-06 08:00] VITALS: BP 152/72
[2022-02-06] MEDS: PANTOPRAZOLE 40 MG INJ VIAL IVP SCH ×2 (09:00→21:00)
[2022-02-06] MEDS: SENNA 8.6 MG TAB PO SCH ×3 (09:00→17:51)
[2022-02-06] MEDS: POLYETHYLENE GLYCOL 17 GM/PKT PO SCH ×2 (09:00→21:27)
[2022-02-06] MEDS: GABAPENTIN 100 MG CAP PO SCH (09:00)
[2022-02-06] MEDS: METOPROLOL 25 MG TAB PO SCH ×2 (09:00→21:27)
[2022-02-06] MEDS: LACTULOSE 20 GM/30 ML UDC PO SCH ×4 (09:00→21:25)
[2022-02-06 12:00] VITALS: BP 147/68
[2022-02-06] MEDS ORDERED: diphenhydrAMINE 50 MG/ML VIAL ONE (12:59)
[2022-02-06] MEDS ORDERED: fentaNYL citrate 0.05 MG/ML VIAL ONE (13:00)
[2022-02-06] MEDS ORDERED: MIDAZOLAM 2 MG/2 ML VIAL ONE (13:00)
--- NOTE | 2022-02-06 14:52 | NUR ---
DC PLANNING PER NOTES, PT IS ALERT AND ORIENTED X2, THEREFORE LARA OUTREACHED TO [facility] TO GATHER COLLATERAL INFORMATION. SPOKE WITH [facility]IN [facility] LARA, WHO REPORTS PT IS IN SHELTER CARE WITH FACILITY, ADMISSION DATE 04/26/21. COLLIN REPORTS THAT NO KNOWN FAMILY INVOLVEMENT AND REPORTS PT IS SELF RESPONSIBLE AND IS DECISION MAKER. PT IS REPORTED TO BE AMBULATORY WITH OCCASIONAL WC USE. PT COMPLETES ADL'S INDEPENDENTLY. PT IS REPORTED TO BE ALERT AND ORIENTED X3 AT BASELINE. PT IS REPORTED TO BE COMPLIANT WITH CARE AND DOES NOT DISPLAY ANY AGGRESSIVE BEHAVIORS AT FACILITY. COLLIN REPORTS PT DOES HOWEVER GET ANXIOUS AND WILL BECOME EMOTIONAL. LARA REPORTS WORKING WITH PT ON IDENTIFYING ASSISTED LIVING HOME AND REPORTS PT ACCEPTED TO [facility] IN [place], UNIT IS BEING HELD WHILE PT IS ADMITTED. COLLIN REPORTS DC PLAN IS FOR PT TO RETURN TO [facility] ONCE MEDICALLY STABLE. Addendum: 02/06/22 at 1455 by Edu WILLOUGHBY Amended: Links added. Addendum: 02/08/22 at 1413 by Edu WILLOUGHBY PACKET SET TO [facility]. OUTREACHED TO [facility] FOR UPDATE ON PACKET SENT. SONIA AVILA PT ACCEPTED TO ROOM 221A, DR NICOLE FOLLOWING , NUMBER FOR REPORT [phone]. TRANSPORTATION ARRANGED WITH [facility] , . SPOKE WITH MARCUS WHO ENTERED REQUEST. MARCUS AVILA [employer] WILL CALL WITH CONTRACT PROVIDER AND TIME OF [employer] SUPERVIS[employer]. PROVIDED MARCUS WITH NURSING STATION PHONE NUMBER IF SW NOT AVAIL TO ANSWER CALL. ENDORSED TO CHARGE NURSE.
[2022-02-06 15:08] LABS: FOLIC ACID 13.5 ng/mL (>3.0)
[2022-02-06 16:00] VITALS: BP 147/68
--- NOTE | 2022-02-06 19:30 | NUR ---
RECEIVED REPORT FROM MORNING SHIFT NURSE. PT IS AOX3-4, AMBULATORY, ABLE TO VERBALIZE NEEDS AND ABLE TO FOLLOW COMMANDS. PT IS ON ROOM AIR AND ON FULL CLEAR LIQUID DIET. PT HAS NO IV LINE, DR. MELLO WAS AWARE ON THAT. PT SKIN IS INTACT. PT HAS EGD AND COLONOSCOPY TOMORROW, CONSENT WAS ALREADY SIGNED. ALL SAFETY MEASURES IMPLEMENTED. BED IN LOW POSITION, BED WHEELS ON LOCKED AND CALL LIGHT WITHIN REACH.
[2022-02-06 20:00] VITALS: BP 150/94
--- NOTE | 2022-02-06 21:27 | NUR ---
ALL SCHEDULED AND PRESCRIBED MEDICATION WAS GIVEN TO PT PER MD ORDER EXCEPT PANTOPRAZOLE DUE TO NO IV ACCESS. ALL SAFETY MEASURES IMPLEMENTED. BED IN LOW POSITION, BED WHEELS ON LOCKED AND CALL LIGHT WITHIN REACH.
[2022-02-07] VITALS: BP 137/63
--- NOTE | 2022-02-07 | NUR ---
PT IS SLEEPING. CHEST RISE AND FALL SYMMETRICALLY NOTED. RESPIRATION IS EVEN AND UNLABORED. ALL SAFETY MEASURES IMPLEMENTED. BED IN LOW POSITION, BED WHEELS ON LOCKED AND CALL LIGHT WITHIN REACH.
--- NOTE | 2022-02-07 02:00 | NUR ---
PT ASSISTED TO BATHROOM AND DISPOSABLE PANTY WAS GIVEN TO PT PER PT REQUEST. DENIES PAIN AT THIS TIME. MO S/S OF RESPIRATORY DISTRESS NOTED. ALL SAFETY MEASURES IMPLEMENTED. BED WHEELS ON LOCKED, BED IN LOW POSITION AND CALL LIGHT WITHIN REACH.
[2022-02-07 04:00] VITALS: BP 148/76
--- NOTE | 2022-02-07 04:00 | NUR ---
PT WAS GIVEN [place] AND DISPOSABLE PANTY PER PT REQUEST. PT DENIES PAIN AT THIS TIME AND NO S/S OF RESPIRATORY DISTRESS. ALL SAFETY MEASURES IMPLEMENTED. BED WHEELS ON LOCKED, BED IN LOW POSITION AND CALL LIGHT WITHIN REACH.
[2022-02-07 07:18] LABS: BASOPHILS # (AUTO) 0.1 K/uL (0.00-0.22); BASOPHILS % (AUTO) 1.4 % (0.0-2.0); EOSINOPHILS # (AUTO) 0.2 K/uL (0-0.4); EOSINOPHILS % (AUTO) 3.7 % (0.0-4.0); HEMATOCRIT 25.7 % (36-48); HEMOGLOBIN 8.1 g/dL (12.0-16.0); LYMPHOCYTES # (AUTO) 1.2 K/uL (2.5-16.5); LYMPHOCYTES % (AUTO) 22.6 % (20.5-51.1); MEAN CORPUSCULAR HEMOGLOBIN 27 pg (27-31); MEAN CORPUSCULAR HGB CONC 32 g/dL (33-37); MEAN CORPUSCULAR VOLUME 85.6 fL (80-94); MONOCYTES # (AUTO) 0.6 K/uL (0.8-1.0); MONOCYTES % (AUTO) 11.3 % (1.7-9.3); NEUTROPHILS # (AUTO) 3.2 K/uL (1.8-7.7); PLATELET COUNT (AUTO) 166 K/uL (140-450); RED CELL DISTRIBUTION WIDTH 17.2 % (11.6-13.7); WHITE BLOOD COUNT (AUTO) 5.2 K/uL (4.8-10.8)
[2022-02-07 07:24] LABS: ANION GAP 14.8 (8-16); CARBON DIOXIDE 22.9 mmol/L (21-32); CHLORIDE 114 mmol/L (98-107); CREATININE 1.4 mg/dL (0.6-1.3); GLUCOSE 85 mg/dL (74-106); POTASSIUM 4.7 mmol/L (3.5-5.1); SODIUM SERUM 147 mmol/L (136-145); UREA NITROGEN, BLOOD 26 mg/dL (7-18)
--- NOTE | 2022-02-07 07:30 | NUR ---
RECEIVED REPORT FROM NIGHTSHIFT NURSEARLET. PT A/O X2. ABLE TO MAKE NEEDS KNOWN. NO IV ACCESS. NIGHTSHIFT NURSE STATES SHE REFUSED COURT DEPUTY AND REFUSED IV. PT IS SCHEDULED FOR COLONOSCOPY/EGD TODAY. NO SOB NOTED. NEEDS ALL MET. ALL SAFETY MEASURES IN PLACE.
--- NOTE | 2022-02-07 07:46 | NUR ---
PT IS STABLE. ENDORSED PT TO MORNING SHIFT NURSE FOR CONTINUITY OF CARE.
[2022-02-07 08:00] VITALS: BP 148/53
[2022-02-07] MEDS: GABAPENTIN 100 MG CAP PO SCH (09:00)
[2022-02-07] MEDS ORDERED: METOCLOPRAMIDE 10 MG/2 ML INJ VIAL IVP SCH (09:30)
--- NOTE | 2022-02-07 09:30 | NUR ---
NEW IV IN RFA #20 WITH POSITIVE BLOOD RETURN. PT STATES, "I HATE NEEDLES". TEGADERM AND TAPE APPLIED. BED IN LOWEST POSITION, ALL ITEMS WITHIN REACH, SAFETY MEASURES IN PLACE.
[2022-02-07] MEDS: METOPROLOL 25 MG TAB PO SCH ×2 (09:33→20:18)
[2022-02-07] MEDS ORDERED: diphenhydrAMINE 50 MG/ML VIAL ONE (09:37)
[2022-02-07] MEDS ORDERED: fentaNYL citrate 0.05 MG/ML VIAL ONE (09:37)
[2022-02-07] MEDS ORDERED: MIDAZOLAM 2 MG/2 ML VIAL ONE (09:38)
--- NOTE | 2022-02-07 11:20 | NUR ---
PT BACK FROM EGD/COLONOSCOPY. PT RESTING WITH EYES CLOSED. CHEST RISING AND FALLING. VSS. ALL SAFETY MEASURES IN PLACE.
[2022-02-07] MEDS: LACTULOSE 20 GM/30 ML UDC PO SCH (11:40)
[2022-02-07 12:00] VITALS: BP 114/56
[2022-02-07] MEDS ORDERED: MIDAZOLAM 2 MG/2 ML VIAL IVP ONE (12:25)
[2022-02-07] MEDS ORDERED: fentaNYL citrate 0.05 MG/ML VIAL IVP ONE (12:25)
--- NOTE | 2022-02-07 13:30 | NUR ---
SPOKE WITH PT'S SON (CRISTOPHER) AND PLAN OF CARE UPDATED. PT'S SON VERBALIZED UNDERSTANDING.
[2022-02-07] MEDS: NACL 0.9% 1,000 ML IV SCH (15:30)
[2022-02-07 16:00] VITALS: BP 133/75
--- NOTE | 2022-02-07 19:11 | NUR ---
REPORT GIVEN TO NIGHTSHIFT NURSENOLBERTO FOR CONTINUITY OF CARE.
[2022-02-07 21:15] VITALS: BP 184/49
--- NOTE | 2022-02-07 22:41 | NUR ---
Pt refusing iv restart, she is drinking water. IV site is bloody and iv pump alerts. No swelling noted.
[2022-02-08 05:08] VITALS: BP 129/53
--- NOTE | 2022-02-08 06:16 | NUR ---
Pt. needs met this shift, vss, no acute distress, sleeping quietly, call light in reach
--- NOTE | 2022-02-08 07:30 | NUR ---
RECEIVED REPORT FROM NIGHTSHIFT NURSE, NOLBERTO. PT A/O X 2. NO SOB NOTED. HOB ELEVATED. ON RA. DENIES PAIN. NO IVF INFUSING. NEEDS ALL MET AT THIS TIME. ALL SAFETY MEASURES IN PLACE.
[2022-02-08] MEDS: NACL 0.9% 1,000 ML IV SCH (07:40)
[2022-02-08 08:00] VITALS: BP 175/74
[2022-02-08 08:49] LABS: BASOPHILS # (AUTO) 0.1 K/uL (0.00-0.22); BASOPHILS % (AUTO) 1.2 % (0.0-2.0); EOSINOPHILS # (AUTO) 0.2 K/uL (0-0.4); EOSINOPHILS % (AUTO) 3.2 % (0.0-4.0); HEMATOCRIT 27.3 % (36-48); HEMOGLOBIN 8.6 g/dL (12.0-16.0); LYMPHOCYTES # (AUTO) 0.9 K/uL (2.5-16.5); MEAN CORPUSCULAR HEMOGLOBIN 27 pg (27-31); MEAN CORPUSCULAR HGB CONC 32 g/dL (33-37); MEAN CORPUSCULAR VOLUME 85.8 fL (80-94); MONOCYTES # (AUTO) 0.5 K/uL (0.8-1.0); MONOCYTES % (AUTO) 10.5 % (1.7-9.3); NEUTROPHILS # (AUTO) 3.3 K/uL (1.8-7.7); NEUTROPHILS % (AUTO) 67.1 % (42.2-75.2); PLATELET COUNT (AUTO) 174 K/uL (140-450); RED BLOOD CELL COUNT(AUTO) 3.18 MIL/uL (4.20-5.40); RED CELL DISTRIBUTION WIDTH 17.1 % (11.6-13.7); WHITE BLOOD COUNT (AUTO) 4.9 K/uL (4.8-10.8)
[2022-02-08 08:57] LABS: ANION GAP 8.8 (8-16); CARBON DIOXIDE 24.8 mmol/L (21-32); CHLORIDE 112 mmol/L (98-107); CREATININE 1.3 mg/dL (0.6-1.3); GLUCOSE 91 mg/dL (74-106); POTASSIUM 4.6 mmol/L (3.5-5.1); SODIUM SERUM 141 mmol/L (136-145); UREA NITROGEN, BLOOD 23 mg/dL (7-18)
[2022-02-08] MEDS: LACTULOSE 20 GM/30 ML UDC PO SCH (09:00)
[2022-02-08] MEDS: GABAPENTIN 100 MG CAP PO SCH (09:26)
[2022-02-08] MEDS: METOPROLOL 25 MG TAB PO SCH (09:26)
[2022-02-08 11:00] VITALS: BP 115/78
--- NOTE | 2022-02-08 11:00 | NUR ---
BP RECHECK = 115/78, HR 70. PT DENIES PAIN. SITTING UP IN BED. NEEDS ALL MET AT THIS TIME. ALL SAFETY MEASURES IN PLACE.
[2022-02-08 13:23] VITALS: BP 115/78
--- NOTE | 2022-02-08 15:00 | NUR ---
PT PULLED OUT IV. NO ACTIVE BLEEDING. PT SITTING UP IN BED. PT IN NO DISTRESS. ON RA. DENIES PAIN. PROVIDED ORAL FLUIDS PER REQUEST. ALL NEEDS MET. ALL SAFETY MEASURES IN PLACE.
--- NOTE | 2022-02-08 16:00 | NUR ---
DISCHARGE INSTRUCTIONS GIVEN. PT VERBALIZED UNDERSTANDING. PT WITH NO IV ACCESS. CONTACTED CASE MANAGEMENT SHE ENDORSED TO SET UP TRANSPORTATION. CONTACTED TRANSPORTATION AND WILL CALL BACK FOR ETA.
--- NOTE | 2022-02-08 16:30 | NUR ---
PT TRANSPORTED OUT VIA [facility]
== END 2022-02-08 16:47 | DRG 280 ==
LOC: MED 22:49 → MTU 02-05 01:47
PROVIDERS: ADMIT Family Medicine; ATTEND Family Medicine
PROC: 30233N1 Transfusion of Nonautologous Red Blood Cells into Peripheral Vein, Percutaneous Approach (ICD-10-PCS; principal; 2022-02-05)
PROC: 0DBN8ZZ Excision of Sigmoid Colon, Via Natural or Artificial Opening Endoscopic (ICD-10-PCS; 2022-02-07)
PROC: 0DJ08ZZ Inspection of Upper Intestinal Tract, Via Natural or Artificial Opening Endoscopic (ICD-10-PCS; 2022-02-07 10:00)
DX: I21.4 Non-ST elevation (NSTEMI) myocardial infarction (principal); N17.0 Acute kidney failure with tubular necrosis; E44.1 Mild protein-calorie malnutrition; E87.0 Hyperosmolality and hypernatremia; I44.7 Left bundle-branch block, unspecified; F03.90 Unspecified dementia, unspecified severity, without behavioral disturbance, psychotic disturbance, mood disturbance, and anxiety; K44.9 Diaphragmatic hernia without obstruction or gangrene; I10 Essential (primary) hypertension; J44.9 Chronic obstructive pulmonary disease, unspecified; Z79.1 Long term (current) use of non-steroidal anti-inflammatories (NSAID); Z79.899 Other long term (current) drug therapy; Z68.22 Body mass index [BMI] 22.0-22.9, adult; Z20.822 Contact with and (suspected) exposure to COVID-19; K57.30 Diverticulosis of large intestine without perforation or abscess without bleeding; D64.9 Anemia, unspecified
CPT/HCPCS: 36415; 36430; 71045; 80048; 80053; 82607; 82728; 82746; 83540; 83735; 83880; 84443; 84484; 85025; 85045; 86886; 86900; 86901; 86920; 87081; 88305; 93005; 99285; C9113; J1200; J2060; J2250; J2765; J3010; J7030; P9016; Q0092